=== PATIENT | female | born 1995 | race Caucasian/White ===

== ENCOUNTER 2017-06-25 13:53 | Emergency (ER) | payer OTHER ==
[~2017-06-25] VITALS: Ht 162.6 cm; Wt 104.3 kg
[~2017-06-25 13:53] MED LIST: ALBU90OI6 INH; AMOX500 PO; Acidophilus La100 GM PO; BENZ100A PO; BIOTIN1 MG PO; BIRTH CONTROL; Bactrim Ds Tab1 EACH PO; CEFU250 PO; CEPH500 PO; CIPR500 PO; Cipro500 MG PO; Cranberry400 MG PO; DULO30 PO; ESCI5; FISH1000 PO; FLUT.05NI; FOLBIC RF TABL1 EACH PO; HYOS.125 SL; IRON150C; KETO200 PO; NEOPOLHCSU RIGHTEAR; NITR100 PO; NOSE SPRAY; Naprosyn500 MG PO; Norco 5-325 Ta1 EACH PO; OMEP20ER; ONDA4 PO; PARO25 PO; PREG75 PO; PROM25 PO; PSEU120ER PO; Percocet 5-3251 EACH PO; QUET25; RXHYD5325 PO; TERC.4TC VAG; Ultram50 MG PO; Zofran Odt8 MG SL; [UNRECOGNIZED DRUG - REMARK]
[2017-06-25] MEDS ORDERED: SERT100 PO (14:05)
[2017-06-25] MEDS ORDERED: CLON1 PO (14:05)
[2017-06-25] MEDS ORDERED: Junel Fe 1-201 EACH PO (14:06)
[2017-06-25] MEDS ORDERED: LATUDA40 MG PO (14:06)
[2017-06-25] MEDS ORDERED: TRAZ50 PO (14:06)
[2017-06-25 14:20] LABS: Source, Urine Clean Catch
[2017-06-25 14:28] LABS: BASOPHILS ABSOLUTE AUTO 0.03 K/mm3 (0.00-0.23); BASOPHILS PERCENT AUTO 0 % (0-2); EOSINOPHILS ABSOLUTE AUTO 0.12 K/mm3 (0.00-0.68); EOSINOPHILS PERCENT AUTO 2 % (0-6); Hematocrit 42.5 % (33.0-51.0); Hemoglobin 13.4 g/dL (11.5-16.0); IMMATURE GRAN ABSOLUTE AUTO 0.04 K/mm3 (0.00-0.10); IMMATURE GRAN PERCENT AUTO 1 % (0-1); LYMPHOCYTES ABSOLUTE AUTO 1.78 K/mm3 (0.84-5.20); LYMPHOCYTES PERCENT AUTO 23 % (21-46); MONOCYTES ABSOLUTE AUTO 0.78 K/mm3 (0.16-1.47); MONOCYTES PERCENT AUTO 10 % (4-13); Mean Corpuscular HGB Conc 31.5 g/dL (31.5-36.5); Mean Corpuscular Volume 86 fL (80-100); Mean Platelet Volume 9.9 fL (9.1-12.4); NEUTROPHILS ABSOLUTE AUTO 5.16 K/mm3 (1.96-9.15); NEUTROPHILS PERCENT AUTO 65 % (41-73); Platelet Count 301 K/mm3 (150-400); RDW Coefficient Variation 13.3 % (11.7-14.2); RDW Standard Deviation 41.9 fL (35.1-46.3); Red Blood Cell Count 4.96 M/mm3 (3.80-5.20); White Blood Cell Count 7.91 K/mm3 (4.00-11.30)
[2017-06-25 14:29] LABS: Appearance, Urine Clear (Clear); Bilirubin, Urine Neg (Neg); Blood, Urine Neg (Neg); Color, Urine Yellow (P-Yellow); Glucose Qualitative, Urine Neg (Neg); Ketones, Urine Neg (Neg); Leukocyte Esterase, Urine 1+ (Neg); Nitrite, Urine Neg (Neg); Protein, Urine Neg (Neg); Urobilinogen, Urine NORM (Normal)
[2017-06-25 14:37] LABS: Bacteria Mod /hpf; Red Blood Cells, Urine Not Seen /hpf (0-2); Squamous Epithelial Cells Few /hpf (Few)
[2017-06-25 14:41] LABS: U Amphetamine Screen Not Detected; U Barbituate Screen Not Detected; U Benzodiazapine Screen Not Detected; U Buprenorphine Screen Not Detected; U Cannabinoids Screen Not Detected; U Cocaine Screen Not Detected; U Methadone Screen Not Detected; U Methamphetamine Screen Not Detected; U Opiates Screen Not Detected; U Oxycodone Screen Not Detected; U Phencyclidine Screen Not Detected; U Propoxyphene Screen Not Detected
[2017-06-25 14:48] LABS: Alanine Aminotransfer (ALT/SGP 26 U/L (12-78); Albumin, Blood 3.9 g/dL (3.4-5.0); Albumin/Globulin Ratio 0.9 (0.8-1.8); Alk Phos 107 U/L (50-136); Anion Gap 8 mmol/L (6-16); Aspartate Aminotrans (AST/SGOT 13 U/L (12-37); Bilirubin, Total 0.3 mg/dL (0.1-1.0); Blood Urea Nitrogen 8 mg/dL (8-24); Bun/Creatinine Ratio 10.8 (12.0-20.0); CO2, Blood 26 mmol/L (21-32); Calcium, Blood 8.8 mg/dL (8.5-10.1); Chloride, Blood 107 mmol/L (98-108); Creatinine, Blood 0.74 mg/dL (0.40-1.00); Ethanol (Alcohol), Blood, Med <3 mg/dL; Globulin, Blood 4.3 g/dL (2.2-4.0); Glomerular Filtration Rate >60 (60-); Glucose, Blood 85 mg/dL (70-99); Potassium, Blood 3.4 mmol/L (3.5-5.5); Salicylate <1.7 mg/dL (2.8-20.0); Sodium, Blood 141 mmol/L (136-145); Total Protein, Blood 8.2 g/dL (6.4-8.2)
[2017-06-25 15:06] LABS: Acetaminophen, Random <2.0 ug/mL (10.0-30.0)
[2018-03-01] MEDS ORDERED: KETO10 PO (14:16)
== END 2017-06-25 17:39 | disposition home or self-care (01) ==
LOC: ER 13:53
PROVIDERS: Emergency Medicine
DX: F41.9 Anxiety disorder, unspecified (principal); Z65.8 Other specified problems related to psychosocial circumstances; Z79.899 Other long term (current) drug therapy; F17.200 Nicotine dependence, unspecified, uncomplicated
CPT/HCPCS: 36415; 80053; 81001; 81025; 84436; 84443; 85025; 87086; 99284; G0480

== ENCOUNTER 2017-12-29 16:36 | Emergency (ER) | payer OTHER ==
[~2017-12-29] VITALS: Ht 162.6 cm; Wt 93.9 kg
[~2017-12-29 16:36] MED LIST changes: +CLON1 PO; +Junel Fe 1-201 EACH PO; +LATUDA40 MG PO; +SERT100 PO; +TRAZ50 PO
[2017-12-29 17:53] LABS: Hematocrit 38.9 % (33.0-51.0); Hemoglobin 12.4 g/dL (11.5-16.0); Mean Corpuscular HGB 27.8 pg (26.0-34.0); Mean Corpuscular HGB Conc 31.9 g/dL (31.5-36.5); Mean Corpuscular Volume 87 fL (80-100); Mean Platelet Volume 10.2 fL (9.1-12.4); Platelet Count 268 K/mm3 (150-400); RDW Coefficient Variation 13.2 % (11.7-14.2); RDW Standard Deviation 42.5 fL (35.1-46.3); Red Blood Cell Count 4.46 M/mm3 (3.80-5.20); White Blood Cell Count 8.12 K/mm3 (4.00-11.30)
[2017-12-29 18:21] LABS: Anion Gap 7 mmol/L (6-16); Beta HCG, Quantitative, Serum 884 mIU/mL (0-3); Blood Urea Nitrogen 9 mg/dL (8-24); Bun/Creatinine Ratio 9.9 (12.0-20.0); CO2, Blood 25 mmol/L (21-32); Calcium, Blood 8.8 mg/dL (8.5-10.1); Chloride, Blood 108 mmol/L (98-108); Creatinine, Blood 0.91 mg/dL (0.40-1.00); Glomerular Filtration Rate >60 (60-); Glucose, Blood 84 mg/dL (70-99); Sodium, Blood 140 mmol/L (136-145)
[2017-12-29] MEDS ORDERED: Norco 5-325 Ta1 EACH PO (18:55)
== END 2017-12-29 19:40 | disposition home or self-care (01) ==
LOC: ER 16:36
PROVIDERS: Emergency Medicine
DX: O03.9 Complete or unspecified spontaneous abortion without complication (principal)
CPT/HCPCS: 36415; 76801; 76817; 76830; 80048; 84702; 85027; 96374; 99284-25; J3010

== ENCOUNTER → 2018-09-08 | Outpatient (CLI) | payer OTHER ==
[~2018-09-08] MED LIST changes: +KETO10 PO; +TOPI25 PO
== END | disposition home or self-care (01) ==
LOC: LAB SHORT 16:43 → LAB 16:43
PROVIDERS: Obstetrics & Gynecology
DX: Z01.419 Encounter for gynecological examination (general) (routine) without abnormal findings (principal)
CPT/HCPCS: G0123

== ENCOUNTER → 2018-11-30 | Outpatient (CLI) | payer OTHER ==
[2018-12-01 06:36] LABS: Candida species (DNA Probe) Positive (NEGATIVE); G. vaginalis (DNA Probe) Negative (NEGATIVE); T. vaginalis (DNA Probe) Negative (NEGATIVE)
== END | disposition home or self-care (01) ==
LOC: LAB 16:31 → LAB SHORT 16:31
PROVIDERS: Obstetrics & Gynecology
DX: N76.0 Acute vaginitis (principal)
CPT/HCPCS: 87480; 87510; 87660

== ENCOUNTER → 2019-03-15 | Outpatient (CLI) | payer OTHER | END | disposition home or self-care (01) | LOC: LAB EV 13:06 → LAB SHORT 13:06 | DX: N39.0 Urinary tract infection, site not specified (principal) | CPT/HCPCS: 87086 ==

== ENCOUNTER → 2019-04-19 | Outpatient (CLI) | payer OTHER | END | disposition home or self-care (01) | LOC: LAB SHORT 13:54 → LAB 13:54 | DX: Z34.93 Encounter for supervision of normal pregnancy, unspecified, third trimester (principal) | CPT/HCPCS: 87081; 87653 ==

== ENCOUNTER 2019-05-21 04:50 | Inpatient (IN) | payer OTHER ==
[~2019-05-21] VITALS: Ht 165.1 cm; Wt 119.0 kg
[2019-05-21] MEDS ORDERED: PRENATAL TABLE1 EAC2 PO (05:23)
[2019-05-21] MEDS ORDERED: Zantac150 MG PO (05:23)
[2019-05-21 05:53] LABS: BASOPHILS ABSOLUTE AUTO 0.01 K/mm3 (0.00-0.23); BASOPHILS PERCENT AUTO 0 % (0-2); EOSINOPHILS ABSOLUTE AUTO 0.05 K/mm3 (0.00-0.68); EOSINOPHILS PERCENT AUTO 1 % (0-6); Hematocrit 33.9 % (33.0-51.0); Hemoglobin 10.2 g/dL (11.5-16.0); IMMATURE GRAN ABSOLUTE AUTO 0.05 K/mm3 (0.00-0.10); IMMATURE GRAN PERCENT AUTO 1 % (0-1); LYMPHOCYTES ABSOLUTE AUTO 1.91 K/mm3 (0.84-5.20); LYMPHOCYTES PERCENT AUTO 18 % (21-46); MONOCYTES PERCENT AUTO 9 % (4-13); Mean Corpuscular HGB 24.2 pg (26.0-34.0); Mean Corpuscular HGB Conc 30.1 g/dL (31.5-36.5); Mean Corpuscular Volume 81 fL (80-100); Mean Platelet Volume 11.4 fL (9.1-12.4); NEUTROPHILS ABSOLUTE AUTO 7.58 K/mm3 (1.96-9.15); NEUTROPHILS PERCENT AUTO 72 % (41-73); Platelet Count 251 K/mm3 (150-400); RDW Coefficient Variation 15.5 % (11.7-14.2); RDW Standard Deviation 44.9 fL (35.1-46.3); Red Blood Cell Count 4.21 M/mm3 (3.80-5.20)
[2019-05-22 12:17] LABS: Hematocrit 26.7 % (33.0-51.0); Hemoglobin 8.1 g/dL (11.5-16.0); Mean Corpuscular HGB 24.5 pg (26.0-34.0); Mean Corpuscular HGB Conc 30.3 g/dL (31.5-36.5); Mean Corpuscular Volume 81 fL (80-100); Mean Platelet Volume 11.2 fL (9.1-12.4); Platelet Count 199 K/mm3 (150-400); RDW Coefficient Variation 15.8 % (11.7-14.2); RDW Standard Deviation 46.6 fL (35.1-46.3); White Blood Cell Count 14.05 K/mm3 (4.00-11.30)
[2019-05-22] MEDS ORDERED: IBUP800 PO (13:29)
--- NOTE | 2019-05-22 19:33 | NUR ---
RN TO ROOM TO ASSESS PATIENT AND GET 1930 VS. PATIENT JUST UP TO THE SHOWER, SITTING UP AT THE BEDSIDE. BP 183/155 PULSE 133 ON MONITOR. RN TOOK APICAL PULSE WHICH WAS 90. PATIENT ASYMPTOMATIC, DENIES ANY HEADACHE, BLURRED VISION/VISION CHANGES. DTRS WNL, NO CLONUS. RN REPOSITIONED BP CUFF, HAD PATIENT LIE DOWN, RECHECK BP 122/53.BP CUFF CYCLING Q 15 MINUTES TO MONITOR. RN NOTIFIED YOUTH CAREER SPECIALIST RACHEL. WILL CONTINUE TO MONITOR PATIENT.
[2019-05-23] MEDS ORDERED: Percocet 5-3251 EACH PO (08:47)
== END 2019-05-23 09:30 | disposition home or self-care (01) | DRG 768 ==
LOC: OBS 04:50 → BC 05:08
PROVIDERS: ADMIT Obstetrics & Gynecology
PROC: 10D07Z6 Extraction of Products of Conception, Vacuum, Via Natural or Artificial Opening (ICD-10-PCS; principal; 2019-05-21)
PROC: 0DQR0ZZ Repair Anal Sphincter, Open Approach (ICD-10-PCS; 2019-05-21)
PROC: 10H07YZ Insertion of Other Device into Products of Conception, Via Natural or Artificial Opening (ICD-10-PCS; 2019-05-21)
PROC: 3E0R3BZ Introduction of Anesthetic Agent into Spinal Canal, Percutaneous Approach (ICD-10-PCS; 2019-05-21)
DX: O76 Abnormality in fetal heart rate and rhythm complicating labor and delivery (principal); Z37.0 Single live birth; O70.20 Third degree perineal laceration during delivery, unspecified; Z3A.40 40 weeks gestation of pregnancy; O66.0 Obstructed labor due to shoulder dystocia; O77.0 Labor and delivery complicated by meconium in amniotic fluid
CPT/HCPCS: 36415; 51702; 85025; 85027; J1885; J2405; J2590; J3010; J7030; J7120

== ENCOUNTER 2019-08-02 17:41 | Emergency (ER) | payer OTHER ==
[~2019-08-02] VITALS: Ht 162.6 cm; Wt 102.1 kg
[~2019-08-02 17:41] MED LIST changes: +IBUP800 PO; +PRENATAL TABLE1 EAC2 PO; +Zantac150 MG PO
[2019-08-02] MEDS ORDERED: PEPCID40 MG PO (18:29)
[2019-08-02] MEDS ORDERED: Oxycodone-Apap1 EAC3 PO (18:30)
[2019-08-02] MEDS ORDERED: SUMA6I (18:30)
[2019-08-02] MEDS ORDERED: IBU800 M1 PO (18:30)
[2019-08-02] MEDS ORDERED: Ventolin/Prove6.7 GM INH (18:30)
== END 2019-08-02 19:57 | disposition home or self-care (01) ==
LOC: ER 17:41
DX: N81.6 Rectocele (principal); Z88.8 Allergy status to other drugs, medicaments and biological substances
CPT/HCPCS: 99283

== ENCOUNTER → 2019-10-20 | Outpatient (CLI) | payer OTHER ==
[~2019-10-20] MED LIST changes: +IBU800 M1 PO; +Oxycodone-Apap1 EAC3 PO; +PEPCID40 MG PO; +SUMA6I; +Ventolin/Prove6.7 GM INH
== END | disposition home or self-care (01) ==
LOC: LAB 18:51 → LAB SHORT 18:51
DX: R30.9 Painful micturition, unspecified (principal); R35.0 Frequency of micturition
CPT/HCPCS: 87086

== ENCOUNTER → 2020-04-04 | Outpatient (CLI) | payer OTHER ==
[~2020-04-04] MED LIST changes: +Cran-Max500 MG PO; +PHENA200 PO; +PROBIOTIC PO; +SENNA LAXATIVE8.6 MG PO; +VITAMIN D310 MC4 PO; +[UNRECOGNIZED DRUG - OTHER] PO
[2020-04-04 17:52] LABS: BASOPHILS ABSOLUTE AUTO 0.03 K/mm3 (0.00-0.23); BASOPHILS PERCENT AUTO 0 % (0-2); EOSINOPHILS PERCENT AUTO 1 % (0-6); Hematocrit 38.6 % (33.0-51.0); Hemoglobin 11.7 g/dL (11.5-16.0); IMMATURE GRAN ABSOLUTE AUTO 0.03 K/mm3 (0.00-0.10); IMMATURE GRAN PERCENT AUTO 0 % (0-1); LYMPHOCYTES ABSOLUTE AUTO 2.26 K/mm3 (0.84-5.20); LYMPHOCYTES PERCENT AUTO 24 % (21-46); MONOCYTES ABSOLUTE AUTO 0.66 K/mm3 (0.16-1.47); MONOCYTES PERCENT AUTO 7 % (4-13); Mean Corpuscular HGB 25.3 pg (26.0-34.0); Mean Corpuscular HGB Conc 30.3 g/dL (31.5-36.5); Mean Corpuscular Volume 84 fL (80-100); Mean Platelet Volume 10.6 fL (9.1-12.4); NEUTROPHILS ABSOLUTE AUTO 6.33 K/mm3 (1.96-9.15); NEUTROPHILS PERCENT AUTO 67 % (41-73); Platelet Count 324 K/mm3 (150-400); RDW Coefficient Variation 14.7 % (11.7-14.2); Red Blood Cell Count 4.62 M/mm3 (3.80-5.20); White Blood Cell Count 9.41 K/mm3 (4.00-11.30)
[2020-04-15 14:07] LABS: ANABASINE <1 ng/mL (.); COTININE <10 ng/mL (.); NICOTINE <10 ng/mL (.)
== END | disposition home or self-care (01) ==
LOC: LAB 15:35 → LAB SHORT 15:35
PROVIDERS: Obstetrics & Gynecology
DX: Z01.812 Encounter for preprocedural laboratory examination (principal)
CPT/HCPCS: 36415; 85025; G0480

== ENCOUNTER 2020-04-09 07:11 | Day surgery (SDC) | payer OTHER ==
[~2020-04-09] VITALS: Ht 165.1 cm; Wt 113.9 kg
[~2020-04-09 07:11] MED LIST changes: -Cran-Max500 MG PO; -PROBIOTIC PO; -SENNA LAXATIVE8.6 MG PO; -VITAMIN D310 MC4 PO; -[UNRECOGNIZED DRUG - OTHER] PO
[2020-04-09] MEDS ORDERED: VITAMIN D310 MC4 PO (07:54)
[2020-04-09] MEDS ORDERED: Cran-Max500 MG PO (07:55)
[2020-04-09] MEDS ORDERED: PROBIOTIC PO (07:56)
[2020-04-09] MEDS ORDERED: SENNA LAXATIVE8.6 MG PO (07:58)
[2020-04-09] MEDS ORDERED: [UNRECOGNIZED DRUG - OTHER] PO (07:58)
--- NOTE | 2020-04-09 09:04 | NUR ---
MULTIPLE NURSES ATTEMPTED IV WITH NO SUCCESS X6
--- NOTE | 2020-04-09 09:40 | NUR ---
04/09/20 0940 Rusty Morales NO PRE-OP ANTIBIOTICS
--- NOTE | 2020-04-09 15:26 | NUR ---
DISCHARGE PT EDUCATED ON AND RECEIVED PRINTED DISCHARGE INSTRUCTIONS AND VERBALIZED AN UNDERSTANDING. IV DC'D. NO NEW RX. PT HAS DENIED PAIN POST OP. AMBULATING INDEP. VOIDING SPONTANEOUSLY AND DWAIN PO INTAKE WITH NO N/V. PT DISCHARGED HOME WITH MOTHER AND PERSONAL BELONGINGS AT SIDE.
== END 2020-04-09 15:13 | disposition home or self-care (01) ==
LOC: ORSCMMR 07:11 → ORD 08:30 → SURS 11:31 → ORSCMMR 15:13 → SURS 15:13
PROVIDERS: Obstetrics & Gynecology
PROC: 0UQF0ZZ Repair Cul-de-sac, Open Approach (ICD-10-PCS; principal; 2020-04-09 08:30)
PROC: 0JQC0ZZ Repair Pelvic Region Subcutaneous Tissue and Fascia, Open Approach (ICD-10-PCS; principal; 2020-04-09 08:30)
DX: N81.6 Rectocele (principal); F41.8 Other specified anxiety disorders; F31.9 Bipolar disorder, unspecified; G25.81 Restless legs syndrome; Z87.891 Personal history of nicotine dependence; N81.5 Vaginal enterocele
CPT/HCPCS: 36415; 86850; 86900; 86901; J1100; J1885; J2250; J2405; J2704; J2765; J3010; J7120

== ENCOUNTER → 2020-04-17 | Outpatient (CLI) | payer OTHER ==
[~2020-04-17] MED LIST changes: +Cran-Max500 MG PO; +PROBIOTIC PO; +SENNA LAXATIVE8.6 MG PO; +VITAMIN D310 MC4 PO; +[UNRECOGNIZED DRUG - OTHER] PO
== END | disposition home or self-care (01) ==
LOC: LAB SHORT 12:02 → LAB 12:02
DX: R82.90 Unspecified abnormal findings in urine (principal)
CPT/HCPCS: 87070; 87205

== ENCOUNTER → 2020-05-24 | Outpatient (CLI) | payer OTHER ==
[~2020-05-24] MED LIST changes: +OMEP20ER PO; +Phenergan25 M1
[2020-05-25 09:14] LABS: Candida species (DNA Probe) Negative (NEGATIVE); G. vaginalis (DNA Probe) Positive (NEGATIVE); T. vaginalis (DNA Probe) Negative (NEGATIVE)
== END ==
LOC: LAB SHORT 10:30
PROVIDERS: Obstetrics & Gynecology
DX: N89.8 Other specified noninflammatory disorders of vagina (principal)
CPT/HCPCS: 87480; 87510; 87660

== ENCOUNTER → 2020-08-30 | Outpatient (CLI) | payer OTHER ==
[~2020-08-30] MED LIST changes: -OMEP20ER PO; -Phenergan25 M1
[2020-08-31 09:29] LABS: C DIFFICILE DNA NEGATIVE (Negative)
== END | disposition home or self-care (01) ==
LOC: LAB SHORT 12:12
PROVIDERS: Family Medicine
DX: K52.9 Noninfective gastroenteritis and colitis, unspecified (principal)
CPT/HCPCS: 83993; 87338; 87493

== ENCOUNTER 2020-12-10 01:07 | Emergency (ER) | payer OTHER ==
[~2020-12-10] VITALS: Ht 162.6 cm; Wt 113.4 kg
[2020-12-10 01:46] LABS: Source, Urine Clean Catch
[2020-12-10 01:52] LABS: Bilirubin, Urine Neg (Neg); Blood, Urine Neg (Neg); Glucose Qualitative, Urine Neg (Neg); Ketones, Urine Neg (Neg); Leukocyte Esterase, Urine 2+ (Neg); Nitrite, Urine Pos (Neg); Protein, Urine Neg (Neg); Urobilinogen, Urine NORM (Normal)
[2020-12-10 02:02] LABS: Color, Urine Yellow (P-Yellow)
[2020-12-10 02:03] LABS: Appearance, Urine Clear (Clear); Bacteria Many /hpf; Red Blood Cells, Urine Not Seen /hpf (0-2); Squamous Epithelial Cells Few /hpf (Few); White Blood Cells, Urine 25-50 /hpf (0-5)
[2020-12-10] MEDS ORDERED: CEPH500 PO (03:16)
[2020-12-11] MEDS ORDERED: OMEP20ER PO (03:58)
[2020-12-11] MEDS ORDERED: Phenergan25 M1 (03:58)
== END 2020-12-10 03:42 | disposition home or self-care (01) ==
LOC: ER 01:07
PROVIDERS: Emergency Medicine
DX: O23.41 Unspecified infection of urinary tract in pregnancy, first trimester (principal); Z3A.13 13 weeks gestation of pregnancy
CPT/HCPCS: 51702; 81001; 87077; 87086; 87186; 96365-59; 99283-25; A9270; J0696

== ENCOUNTER 2020-12-11 03:46 | Emergency (ER) | payer OTHER | END 2020-12-11 05:01 | disposition home or self-care (01) | LOC: ER 03:46 | DX: R33.9 Retention of urine, unspecified (principal) ==

== ENCOUNTER → 2021-01-24 | Outpatient (CLI) | payer OTHER ==
[~2021-01-24] MED LIST changes: +OMEP20ER PO; +Phenergan25 M1
[2021-01-24 13:04] LABS: Source, Urine Clean Catch
[2021-01-24 14:47] LABS: Appearance, Urine Clear (Clear); Bilirubin, Urine Neg (Neg); Blood, Urine 1+ (Neg); Color, Urine Yellow (P-Yellow); Glucose Qualitative, Urine Neg (Neg); Ketones, Urine Neg (Neg); Leukocyte Esterase, Urine 1+ (Neg); Nitrite, Urine Pos (Neg); Protein, Urine 1+ (Neg); Specific Gravity, Urine 1.015 (1.003-1.022); Urobilinogen, Urine NORM (Normal)
[2021-01-24 15:13] LABS: Bacteria Many /hpf; Red Blood Cells, Urine 0-2 /hpf (0-2); Squamous Epithelial Cells Mod /hpf (Few)
== END | disposition home or self-care (01) ==
LOC: LAB SHORT 10:00 → LAB 10:00
PROVIDERS: Obstetrics & Gynecology
DX: R82.90 Unspecified abnormal findings in urine (principal)
CPT/HCPCS: 81001; 87077; 87086; 87186

== ENCOUNTER → 2021-03-21 | Outpatient (CLI) | payer OTHER ==
[2021-03-21 15:25] LABS: BASOPHILS ABSOLUTE AUTO 0.01 K/mm3 (0.00-0.23); BASOPHILS PERCENT AUTO 0 % (0-2); EOSINOPHILS ABSOLUTE AUTO 0.05 K/mm3 (0.00-0.68); EOSINOPHILS PERCENT AUTO 1 % (0-6); Hematocrit 30.3 % (33.0-51.0); IMMATURE GRAN ABSOLUTE AUTO 0.04 K/mm3 (0.00-0.10); IMMATURE GRAN PERCENT AUTO 1 % (0-1); LYMPHOCYTES ABSOLUTE AUTO 1.58 K/mm3 (0.84-5.20); LYMPHOCYTES PERCENT AUTO 21 % (21-46); MONOCYTES ABSOLUTE AUTO 0.34 K/mm3 (0.16-1.47); MONOCYTES PERCENT AUTO 5 % (4-13); Mean Corpuscular HGB 24.5 pg (26.0-34.0); Mean Corpuscular HGB Conc 29.7 g/dL (31.5-36.5); Mean Corpuscular Volume 82 fL (80-100); Mean Platelet Volume 10.9 fL (9.1-12.4); NEUTROPHILS ABSOLUTE AUTO 5.58 K/mm3 (1.96-9.15); NEUTROPHILS PERCENT AUTO 73 % (41-73); Platelet Count 220 K/mm3 (150-400); RDW Coefficient Variation 15.1 % (11.7-14.2); RDW Standard Deviation 45.8 fL (35.1-46.3); Red Blood Cell Count 3.68 M/mm3 (3.80-5.20)
== END | disposition home or self-care (01) ==
LOC: LAB SHORT 13:21 → LAB 13:21
PROVIDERS: Obstetrics & Gynecology
DX: O09.92 Supervision of high risk pregnancy, unspecified, second trimester (principal)
CPT/HCPCS: 82950; 85025

== ENCOUNTER → 2021-05-27 | Outpatient (CLI) | payer OTHER ==
[2021-05-27 14:40] LABS: Source, Urine Clean Catch
[2021-05-27 17:39] LABS: Appearance, Urine Turbid (Clear); Bilirubin, Urine Neg (Neg); Blood, Urine 1+ (Neg); Glucose Qualitative, Urine 1+ (Neg); Ketones, Urine 1+ (Neg); Leukocyte Esterase, Urine 3+ (Neg); Nitrite, Urine Pos (Neg); Protein, Urine 3+ (Neg); Urobilinogen, Urine NORM (Normal)
[2021-05-27 17:44] LABS: Color, Urine Pale Yellow (P-Yellow)
[2021-05-27 17:53] LABS: Amorphous Mod (0-Heavy); Bacteria Many /hpf; Mucus Light (0-Heavy); Squamous Epithelial Cells Few /hpf (Few)
== END | disposition home or self-care (01) ==
LOC: LAB SHORT 14:16
PROVIDERS: Obstetrics & Gynecology
DX: O09.93 Supervision of high risk pregnancy, unspecified, third trimester (principal); O28.9 Unspecified abnormal findings on antenatal screening of mother
CPT/HCPCS: 81001; 87077; 87081; 87086; 87150; 87186

== ENCOUNTER 2021-06-10 05:29 | Inpatient (IN) | payer OTHER ==
[~2021-06-10] VITALS: Ht 162.6 cm; Wt 119.0 kg
[2021-06-10] MEDS ORDERED: Prozac20 MG PO (05:46)
[2021-06-10 06:39] LABS: BASOPHILS ABSOLUTE AUTO 0.03 K/mm3 (0.00-0.23); BASOPHILS PERCENT AUTO 0 % (0-2); EOSINOPHILS ABSOLUTE AUTO 0.05 K/mm3 (0.00-0.68); EOSINOPHILS PERCENT AUTO 1 % (0-6); Hematocrit 30.7 % (33.0-51.0); Hemoglobin 8.8 g/dL (11.5-16.0); IMMATURE GRAN ABSOLUTE AUTO 0.06 K/mm3 (0.00-0.10); IMMATURE GRAN PERCENT AUTO 1 % (0-1); LYMPHOCYTES ABSOLUTE AUTO 2.06 K/mm3 (0.84-5.20); LYMPHOCYTES PERCENT AUTO 20 % (21-46); MONOCYTES ABSOLUTE AUTO 0.95 K/mm3 (0.16-1.47); MONOCYTES PERCENT AUTO 9 % (4-13); Mean Corpuscular HGB 20.9 pg (26.0-34.0); Mean Corpuscular HGB Conc 28.7 g/dL (31.5-36.5); Mean Corpuscular Volume 73 fL (80-100); Mean Platelet Volume 11.5 fL (9.1-12.4); NEUTROPHILS ABSOLUTE AUTO 7.36 K/mm3 (1.96-9.15); NEUTROPHILS PERCENT AUTO 70 % (41-73); Platelet Count 282 K/mm3 (150-400); RDW Coefficient Variation 16.4 % (11.7-14.2); RDW Standard Deviation 42.5 fL (35.1-46.3); Red Blood Cell Count 4.22 M/mm3 (3.80-5.20); White Blood Cell Count 10.51 K/mm3 (4.00-11.30)
--- NOTE | 2021-06-10 08:22 | NUR ---
06/10/21 0822 Maren Walton DELIVERY OF VIABLE FEMALE INFANT AT 0800. APGARS 9/9. PLACENTA DELIVERED MANUALLY AND COMPLETE. BILATERAL SALPINGECTOMY COMPLETE
--- NOTE | 2021-06-10 17:49 | NUR ---
PT OOB TO CHAIR. DWAIN WELL. JOSELYN CARE DONE, LINENS CHANGED
--- NOTE | 2021-06-10 18:12 | NUR ---
PT BACK TO BED. DWAIN WELL
[2021-06-11 05:32] LABS: BASOPHILS ABSOLUTE AUTO 0.02 K/mm3 (0.00-0.23); BASOPHILS PERCENT AUTO 0 % (0-2); EOSINOPHILS PERCENT AUTO 1 % (0-6); Hematocrit 23.4 % (33.0-51.0); Hemoglobin 6.7 g/dL (11.5-16.0); IMMATURE GRAN ABSOLUTE AUTO 0.07 K/mm3 (0.00-0.10); IMMATURE GRAN PERCENT AUTO 1 % (0-1); LYMPHOCYTES ABSOLUTE AUTO 2.34 K/mm3 (0.84-5.20); LYMPHOCYTES PERCENT AUTO 23 % (21-46); MONOCYTES ABSOLUTE AUTO 0.93 K/mm3 (0.16-1.47); MONOCYTES PERCENT AUTO 9 % (4-13); Mean Corpuscular HGB 21.1 pg (26.0-34.0); Mean Corpuscular HGB Conc 28.6 g/dL (31.5-36.5); Mean Corpuscular Volume 74 fL (80-100); Mean Platelet Volume 11.2 fL (9.1-12.4); NEUTROPHILS ABSOLUTE AUTO 6.91 K/mm3 (1.96-9.15); NEUTROPHILS PERCENT AUTO 67 % (41-73); Platelet Count 204 K/mm3 (150-400); RDW Coefficient Variation 16.5 % (11.7-14.2); Red Blood Cell Count 3.18 M/mm3 (3.80-5.20); White Blood Cell Count 10.37 K/mm3 (4.00-11.30)
--- NOTE | 2021-06-11 22:37 | NUR ---
PATIENT DECLINED SIMETHICONE WHEN OFFERED. SHE REPORTS SHE IS PASSING GAS AND HAS BEEN WALKING AROUND THE ROOM TODAY.
== END 2021-06-12 09:50 | disposition home or self-care (01) | DRG 785 ==
LOC: BC 05:29
PROVIDERS: ADMIT Obstetrics & Gynecology
PROC: 10D00Z1 Extraction of Products of Conception, Low, Open Approach (ICD-10-PCS; principal; 2021-06-10 07:30)
PROC: 0UB70ZZ Excision of Bilateral Fallopian Tubes, Open Approach (ICD-10-PCS; 2021-06-10 07:30)
DX: O99.03 Anemia complicating the puerperium (principal); Z53.20 Procedure and treatment not carried out because of patient's decision for unspecified reasons; Z67.40 Type O blood, Rh positive; Z37.0 Single live birth; Z30.2 Encounter for sterilization; Z3A.39 39 weeks gestation of pregnancy
CPT/HCPCS: 36415; 85025; 86850; 86900; 86901; 88302; A9270; J0690; J1885; J2370; J2405; J2590; J2704; J2765; J2916; J3010; J7120

== ENCOUNTER 2024-08-02 20:10 | Emergency (ER) | payer OTHER ==
[~2024-08-02] VITALS: Ht 165.1 cm; Wt 93.9 kg
[~2024-08-02 20:10] MED LIST changes: +Amphetamine Sal20 MG PO; +Keflex500 MG PO; +ONDA4ODT MM; +Prozac20 MG PO
[2024-08-02 20:53] LABS: BASOPHILS ABSOLUTE AUTO 0.08 K/mm3 (0.00-0.23); BASOPHILS PERCENT AUTO 1 % (0-2); EOSINOPHILS ABSOLUTE AUTO 0.89 K/mm3 (0.00-0.68); EOSINOPHILS PERCENT AUTO 9 % (0-6); Hematocrit 41.2 % (33.0-51.0); Hemoglobin 13.1 g/dL (11.5-16.0); IMMATURE GRAN ABSOLUTE AUTO 0.04 K/mm3 (0.00-0.10); IMMATURE GRAN PERCENT AUTO 0 % (0-1); LYMPHOCYTES ABSOLUTE AUTO 2.09 K/mm3 (0.84-5.20); LYMPHOCYTES PERCENT AUTO 21 % (21-46); MONOCYTES ABSOLUTE AUTO 0.82 K/mm3 (0.16-1.47); MONOCYTES PERCENT AUTO 8 % (4-13); Mean Corpuscular HGB 28.1 pg (26.0-34.0); Mean Corpuscular HGB Conc 31.8 g/dL (31.5-36.5); Mean Corpuscular Volume 88 fL (80-100); Mean Platelet Volume 10.1 fL (9.1-12.4); NEUTROPHILS PERCENT AUTO 61 % (41-73); Platelet Count 335 K/mm3 (150-400); RDW Coefficient Variation 13.6 % (11.7-14.2); RDW Standard Deviation 44.2 fL (35.1-46.3); Red Blood Cell Count 4.66 M/mm3 (3.80-5.20); White Blood Cell Count 10.12 K/mm3 (4.00-11.30)
[2024-08-02 21:22] LABS: Albumin, Blood 3.9 g/dL (3.4-5.0); Albumin/Globulin Ratio 1.1 (0.8-1.8); Bilirubin, Total 0.2 mg/dL (0.1-1.0); Bun/Creatinine Ratio 13.8 (12.0-20.0); Calcium, Blood 8.8 mg/dL (8.5-10.1); Creatinine, Blood 0.72 mg/dL (0.40-1.00); Globulin, Blood 3.7 g/dL (2.2-4.0); Potassium, Blood 3.5 mmol/L (3.5-5.5); Total Protein, Blood 7.6 g/dL (6.4-8.2)
[2024-08-02] MEDS ORDERED: DELTASONE20 MG PO (23:39)
[2024-08-02] MEDS ORDERED: LORA10ER PO (23:39)
[2024-08-02] MEDS ORDERED: MethylPREDNISolone Sod Succ 125 MG Vial IV ONE (23:40)
[2024-08-02] MEDS ORDERED: Loratadine 10 MG Tab PO ONE (23:40)
[2024-08-02] MEDS ORDERED: Ipratropium/Albuterol SulF 2.5-0.5MG/3 ML Amp INH ONE (23:40)
[2024-08-02] MEDS ORDERED: Ventolin5 MG/1 ML INH (23:41)
[2024-08-03 00:20] VITALS: BP 136/91
== END 2024-08-03 00:20 | disposition home or self-care (01) ==
LOC: ER 20:10
PROVIDERS: Physician Assistant
DX: J45.901 Unspecified asthma with (acute) exacerbation (principal); Z88.8 Allergy status to other drugs, medicaments and biological substances; Z79.899 Other long term (current) drug therapy; Z79.1 Long term (current) use of non-steroidal anti-inflammatories (NSAID); Z79.2 Long term (current) use of antibiotics
CPT/HCPCS: 71046; 80053; 85025; 85379; 93005; 93010; 94640; 94664; 96374; 99285-25; A9270; J2919

== ENCOUNTER → 2025-03-30 | Outpatient (CLI) | payer OTHER ==
[~2025-03-30] MED LIST changes: +DELTASONE20 MG PO; +LORA10ER PO; +Ventolin5 MG/1 ML INH
== END ==
LOC: LAB 09:25 → LAB SHORT 09:25
DX: N61.0 Mastitis without abscess (principal)
CPT/HCPCS: 87070; 87205

== ENCOUNTER 2025-04-08 15:14 | Emergency (ER) | payer OTHER ==
[~2025-04-08] VITALS: Ht 165.1 cm; Wt 98.9 kg
[2025-04-08 16:38] LABS: BASOPHILS ABSOLUTE AUTO 0.04 K/mm3 (0.00-0.23); BASOPHILS PERCENT AUTO 0 % (0-2); EOSINOPHILS ABSOLUTE AUTO 0.12 K/mm3 (0.00-0.68); EOSINOPHILS PERCENT AUTO 1 % (0-6); Hematocrit 41.3 % (33.0-51.0); Hemoglobin 13.1 g/dL (11.5-16.0); IMMATURE GRAN ABSOLUTE AUTO 0.04 K/mm3 (0.00-0.10); IMMATURE GRAN PERCENT AUTO 0 % (0-1); LYMPHOCYTES ABSOLUTE AUTO 1.87 K/mm3 (0.84-5.20); LYMPHOCYTES PERCENT AUTO 15 % (21-46); MONOCYTES ABSOLUTE AUTO 0.93 K/mm3 (0.16-1.47); MONOCYTES PERCENT AUTO 8 % (4-13); Mean Corpuscular HGB Conc 31.7 g/dL (31.5-36.5); Mean Corpuscular Volume 87 fL (80-100); NEUTROPHILS ABSOLUTE AUTO 9.43 K/mm3 (1.96-9.15); NEUTROPHILS PERCENT AUTO 76 % (41-73); NRBC ABSOLUTE 0.00 K/mm3 (0.00-0.02); NRBC Auto 0.0 /100 WBC (0.0-0.2); Platelet Count 322 K/mm3 (150-400); RDW Coefficient Variation 12.7 % (11.7-14.2); RDW Standard Deviation 40.6 fL (35.1-46.3)
[2025-04-08 16:54] LABS: Alanine Aminotransfer (ALT/SGP 23.0 U/L (12-78); Albumin, Blood 3.7 g/dL (3.4-5.0); Albumin/Globulin Ratio 0.9 (0.8-1.8); Anion Gap 4.0 mmol/L (3-11); Aspartate Aminotrans (AST/SGOT 10.0 U/L (12-37); Bilirubin, Total 0.2 mg/dL (0.1-1.0); Blood Urea Nitrogen 8.0 mg/dL (8-24); CO2, Blood 30.0 mmol/L (21-32); Calcium, Blood 8.8 mg/dL (8.5-10.1); Chloride, Blood 108.0 mmol/L (98-108); Creatinine, Blood 0.68 mg/dL (0.40-1.00); Globulin, Blood 3.9 g/dL (2.2-4.0); Glucose, Blood 91.0 mg/dL (70-99); Potassium, Blood 3.7 mmol/L (3.5-5.5); Sodium, Blood 138.0 mmol/L (136-145); Total Protein, Blood 7.6 g/dL (6.4-8.2)
[2025-04-08 19:23] VITALS: BP 124/84
== END 2025-04-08 19:23 | disposition home or self-care (01) ==
LOC: ER 15:14
PROVIDERS: Physician Assistant
DX: N64.52 Nipple discharge (principal); D72.829 Elevated white blood cell count, unspecified; Z79.52 Long term (current) use of systemic steroids; Z79.899 Other long term (current) drug therapy; Z88.8 Allergy status to other drugs, medicaments and biological substances
CPT/HCPCS: 76642; 80053; 85025; 93005; 93010; 99284-25